=== PATIENT | male | born 1935 | race Caucasian/White ===

== ENCOUNTER 2016-09-06 08:21 | Inpatient (IN) | payer OTHER ==
[~2016-09-06] VITALS: Ht 180.3 cm; Wt 98.4 kg
[2016-09-06 09:20] LABS: HEMATOCRIT 43.1 % (38.0-50.0); MCH 28.9 PG (29.0-34.0); MCHC 32.3 G/DL (30.0-36.0); MCV 89.6 FL (86-99); MEAN PLAT.VOLUME 10.5 uM^3 (9.0-12.4); PLATELET COUNT 175 K/uL (156-360); RBC DIS.WIDTH-CV 13.2 % (11.8-14.6); RBC DIS.WIDTH-SD 43.3 % (39-53); RED BLOOD COUNT 4.81 M/uL (4.00-5.50); WHITE BLOOD COUNT 8.9 K/uL (4.1-10.2)
[2016-09-06 09:30] LABS: CHLORIDE 107 mEq/L (99-109); SODIUM 139 mEq/L (136-147)
[2016-09-06 09:32] LABS: GLUCOSE 105 mg/dL (70-99)
[2016-09-06 09:33] LABS: ANION GAP 10 MEQ/L (2-14)
[2016-09-06 09:36] LABS: GFR ESTIMATE (CALCULATED) 44 mL/min/
[2016-09-06 09:37] LABS: UREA NITROGEN (BUN) 34 mg/dL (9-23)
[2016-09-06 09:40] LABS: TROP-I INTERPRETATION NEGATIVE; TROPONIN-I < 0.01 ng/mL (0.0-0.30)
[2016-09-06 10:06] LABS: ADD MIUA? NO; BILIRUBIN NEGATIVE; BLOOD NEGATIVE; COLOR YELLOW ((YELLOW)); GLUCOSE (STRIP) NEGATIVE; KETONES NEGATIVE; LEUKOCYTES NEGATIVE; NITRITE NEGATIVE; PROTEIN (STRIP) 30; SPECIFIC GRAVITY 1.017 (1.000-1.030); UROBILINOGEN 0.2 MG/DL (0.2-1.0)
[2016-09-06] MEDS ORDERED: VERAPAMIL HCL360 MG PO (10:38)
[2016-09-06] MEDS ORDERED: LISINOPRIL-HCT1 EAC3 PO (10:39)
[2016-09-06] MEDS ORDERED: FINASTERIDE5 MG PO (10:39)
[2016-09-06] MEDS ORDERED: ESOMEPRAZOLE MA40 MG PO (10:40)
[2016-09-06] MEDS ORDERED: FENOFIBRIC ACI135 MG PO (10:40)
[2016-09-06] MEDS ORDERED: NADOLOL40 MG PO (10:40)
[2016-09-06] MEDS ORDERED: PENTASA250 MG PO (10:41)
[2016-09-06] MEDS ORDERED: ZENPEP DR 20,01 EACH PO (10:41)
[2016-09-06] MEDS ORDERED: NASONEX17 GM BOTH NARES (10:42)
[2016-09-06] MEDS ORDERED: IPRATROPIUM BRO30 ML BOTH NARES (10:42)
[2016-09-06 21:01] VITALS: BP 140/97
[2016-09-06 23:07] VITALS: BP 137/90
[2016-09-07 04:02] VITALS: BP 141/72
[2016-09-07 06:53] LABS: HEMATOCRIT 42.4 % (38.0-50.0); MCH 28.7 PG (29.0-34.0); MCHC 31.8 G/DL (30.0-36.0); MEAN PLAT.VOLUME 11.2 uM^3 (9.0-12.4); PLATELET COUNT 173 K/uL (156-360); RBC DIS.WIDTH-CV 13.2 % (11.8-14.6); RBC DIS.WIDTH-SD 43.8 % (39-53); RED BLOOD COUNT 4.71 M/uL (4.00-5.50); WHITE BLOOD COUNT 8.3 K/uL (4.1-10.2)
[2016-09-07 07:19] LABS: ANION GAP 10 MEQ/L (2-14); CHLORIDE 105 MEQ/L (99-109); GFR ESTIMATE (CALCULATED) 52 mL/min/; GLUCOSE 97 mg/dL (70-99); POTASSIUM 3.6 MEQ/L (3.7-5.4); SAMPLE HEMOLYSIS CHECK 0; SAMPLE ICTERIC CHECK 0; SAMPLE LIPEMIA CHECK 0; SODIUM 139 MEQ/L (136-147); UREA NITROGEN (BUN) 28 mg/dL (9-23)
[2016-09-07 07:23] VITALS: BP 176/80
[2016-09-07 07:36] LABS: CREATINE KINASE 122 IU/L (1-294)
[2016-09-07 11:07] VITALS: BP 175/79
[2016-09-07 15:12] VITALS: BP 168/74
[2016-09-07 19:36] VITALS: BP 179/82
[2016-09-07 23:26] VITALS: BP 169/77
[2016-09-08 03:23] VITALS: BP 156/68
[2016-09-08 06:55] VITALS: BP 160/74
[2016-09-08 11:32] VITALS: BP 154/71
[2016-09-08 16:53] VITALS: BP 176/84
[2016-09-08 19:10] VITALS: BP 172/81
[2016-09-08 22:49] VITALS: BP 186/80
[2016-09-09 02:25] VITALS: BP 131/62
[2016-09-09 07:15] VITALS: BP 149/68
[2016-09-09 10:50] VITALS: BP 182/74
[2016-09-09 19:07] VITALS: BP 175/82
[2016-09-09 23:36] VITALS: BP 142/48
[2016-09-10 03:21] VITALS: BP 140/68
[2016-09-10 07:13] VITALS: BP 158/72
[2016-09-10 15:00] VITALS: BP 162/70
[2016-09-10 19:25] VITALS: BP 140/81
[2016-09-10 23:16] VITALS: BP 160/78
[2016-09-11 02:40] VITALS: BP 148/66
[2016-09-11 07:39] VITALS: BP 181/74
[2016-09-11] MEDS ORDERED: CLONIDINE HCL0.1 MG PO (08:16)
[2016-09-11] MEDS ORDERED: PREDNISONE20 MG PO (08:17)
[2016-09-11 11:49] VITALS: BP 148/66
== END 2016-09-11 13:36 | DRG 552 ==
LOC: EME 08:21 → 5EAST 15:56 → EDOF 15:56 → 5EAST 20:40
PROVIDERS: Internal Medicine; Nurse Practitioner Family
DX: M48.06 Spinal stenosis, lumbar region (principal); M43.16 Spondylolisthesis, lumbar region; I12.9 Hypertensive chronic kidney disease with stage 1 through stage 4 chronic kidney disease, or unspecified chronic kidney disease; N18.9 Chronic kidney disease, unspecified; R00.1 Bradycardia, unspecified; E78.5 Hyperlipidemia, unspecified; K21.9 Gastro-esophageal reflux disease without esophagitis; N40.0 Benign prostatic hyperplasia without lower urinary tract symptoms
CPT/HCPCS: 70450; 71020; 72100; 72120; 72148; 80048; 81003; 82550; 84484; 85027; 93005; 97530 GO; 97530 GP; 99281; 99285; G8978 GP CJ; G8979 GP CH; G8987 GO CI; G8988 GO CH; J1650; J2920; J7030; J7512

== ENCOUNTER 2016-09-11 08:58 | Inpatient (IN) | payer OTHER ==
[~2016-09-11] VITALS: Ht 180.3 cm; Wt 93.4 kg
[~2016-09-11 08:58] MED LIST: CLONIDINE HCL0.1 MG PO; ESOMEPRAZOLE MA40 MG PO; FENOFIBRIC ACI135 MG PO; FINASTERIDE5 MG PO; IPRATROPIUM BRO30 ML BOTH NARES; LISINOPRIL-HCT1 EAC3 PO; NADOLOL40 MG PO; NASONEX17 GM BOTH NARES; PENTASA250 MG PO; PREDNISONE20 MG PO; VERAPAMIL HCL360 MG PO; ZENPEP DR 20,01 EACH PO
[2016-09-11 14:04] VITALS: BP 148/68
[2016-09-11 15:27] VITALS: BP 150/70
[2016-09-11 23:57] VITALS: BP 120/59
[2016-09-12 05:28] LABS: HEMATOCRIT 42.6 % (38.0-50.0); MCH 29.3 PG (29.0-34.0); MCHC 32.6 G/DL (30.0-36.0); MCV 89.7 FL (86-99); MEAN PLAT.VOLUME 10.9 uM^3 (9.0-12.4); PLATELET COUNT 192 K/uL (156-360); RBC DIS.WIDTH-CV 13.4 % (11.8-14.6); RED BLOOD COUNT 4.75 M/uL (4.00-5.50)
[2016-09-12 05:53] LABS: ALKALINE PHOSPHATASE 24 IU/L (3-129); ANION GAP 10 MEQ/L (2-14); CHLORIDE 103 MEQ/L (99-109); GFR ESTIMATE (CALCULATED) 36 mL/min/; GLUCOSE 86 mg/dL (70-99); SAMPLE HEMOLYSIS CHECK 0; SAMPLE ICTERIC CHECK 0; SAMPLE LIPEMIA CHECK 0; SODIUM 137 MEQ/L (136-147); TOTAL BILIRUBIN 0.7 MG/DL (0.0-1.0)
[2016-09-12 05:54] LABS: UREA NITROGEN (BUN) 69 mg/dL (9-23)
[2016-09-12 06:03] VITALS: BP 143/68
[2016-09-12 15:02] VITALS: BP 122/59
[2016-09-13 06:09] VITALS: BP 128/60
[2016-09-13 08:20] VITALS: BP 119/59
[2016-09-13 15:23] VITALS: BP 125/63
[2016-09-13 17:13] LABS: ADD MIUA? NO; BILIRUBIN NEGATIVE; BLOOD NEGATIVE; COLOR YELLOW ((YELLOW)); GLUCOSE (STRIP) NEGATIVE; KETONES NEGATIVE; LEUKOCYTES NEGATIVE; NITRITE NEGATIVE; PROTEIN (STRIP) NEGATIVE; SPECIFIC GRAVITY 1.019 (1.000-1.030); UROBILINOGEN 0.2 MG/DL (0.2-1.0)
[2016-09-13 17:48] LABS: UR CREATININE CONCENTRATION 114.8 MG/DL
[2016-09-14 05:24] VITALS: BP 124/61
[2016-09-14 06:19] LABS: EOSINOPHIL (%) 0.6 % (0-5); EOSINOPHIL COUNT 0.1 K/uL (0-0.3); HEMATOCRIT 42.9 % (38.0-50.0); IMMATURE GRANULOCYTE (%) 4.1 % (0.0-0.7); IMMATURE GRANULOCYTE COUNT 0.6 K/uL; INSTRUMENT ABS NEUTROPHIL CT 10.2 K/uL; LYMPHOCYTE COUNT 2.4 K/uL (1.0-2.8); MCH 29.5 PG (29.0-34.0); MCHC 32.6 G/DL (30.0-36.0); MCV 90.3 FL (86-99); MEAN PLAT.VOLUME 10.3 uM^3 (9.0-12.4); MONOCYTE (%) 6.3 % (3-12); MONOCYTE COUNT 0.9 K/uL (0-0.8); NEUTROPHIL COUNT 10.2 K/uL (1.8-6.4); PLATELET COUNT 204 K/uL (156-360); RBC DIS.WIDTH-CV 13.4 % (11.8-14.6); RBC DIS.WIDTH-SD 44.9 % (39-53); RED BLOOD COUNT 4.75 M/uL (4.00-5.50); WHITE BLOOD COUNT 14.2 K/uL (4.1-10.2)
[2016-09-14 06:42] LABS: ANION GAP 10 MEQ/L (2-14); CHLORIDE 104 MEQ/L (99-109); GFR ESTIMATE (CALCULATED) 31 mL/min/; GLUCOSE 93 mg/dL (70-99); MAGNESIUM 2.4 mg/dl (1.3-2.7); POTASSIUM 4.1 MEQ/L (3.7-5.4); SAMPLE HEMOLYSIS CHECK 0; SAMPLE ICTERIC CHECK 0; SAMPLE LIPEMIA CHECK 0; SODIUM 137 MEQ/L (136-147); UREA NITROGEN (BUN) 78 mg/dL (9-23)
[2016-09-14 18:17] LABS: ADD MIUA? NO; BILIRUBIN NEGATIVE; BLOOD NEGATIVE; COLOR YELLOW ((YELLOW)); GLUCOSE (STRIP) NEGATIVE; KETONES NEGATIVE; LEUKOCYTES NEGATIVE; NITRITE NEGATIVE; PROTEIN (STRIP) NEGATIVE; SPECIFIC GRAVITY 1.017 (1.000-1.030); UROBILINOGEN 0.2 MG/DL (0.2-1.0)
[2016-09-15 05:29] VITALS: BP 140/65
[2016-09-15 05:34] LABS: EOSINOPHIL (%) 0.3 % (0-5); HEMATOCRIT 42.9 % (38.0-50.0); IMMATURE GRANULOCYTE (%) 2.4 % (0.0-0.7); IMMATURE GRANULOCYTE COUNT 0.4 K/uL; LYMPHOCYTE COUNT 2.4 K/uL (1.0-2.8); MCH 29.8 PG (29.0-34.0); MCHC 33.1 G/DL (30.0-36.0); MCV 90.1 FL (86-99); MEAN PLAT.VOLUME 10.4 uM^3 (9.0-12.4); MONOCYTE (%) 6.1 % (3-12); MONOCYTE COUNT 0.9 K/uL (0-0.8); NEUTROPHIL (%) 74.7 % (45-76); PLATELET COUNT 236 K/uL (156-360); RBC DIS.WIDTH-CV 13.5 % (11.8-14.6); RBC DIS.WIDTH-SD 44.7 % (39-53); RED BLOOD COUNT 4.76 M/uL (4.00-5.50); WHITE BLOOD COUNT 14.7 K/uL (4.1-10.2)
[2016-09-15 05:58] LABS: ANION GAP 10 MEQ/L (2-14); CHLORIDE 106 MEQ/L (99-109); GFR ESTIMATE (CALCULATED) 41 mL/min/; GLUCOSE 87 mg/dL (70-99); POTASSIUM 4.4 MEQ/L (3.7-5.4); SAMPLE HEMOLYSIS CHECK 0; SAMPLE ICTERIC CHECK 0; SAMPLE LIPEMIA CHECK 0; SODIUM 138 MEQ/L (136-147); UREA NITROGEN (BUN) 68 mg/dL (9-23)
[2016-09-15 15:19] VITALS: BP 101/55
[2016-09-16 06:43] VITALS: BP 137/62
[2016-09-16 12:18] LABS: ADD MIUA? NO; BILIRUBIN NEGATIVE; BLOOD NEGATIVE; COLOR YELLOW ((YELLOW)); GLUCOSE (STRIP) NEGATIVE; KETONES NEGATIVE; LEUKOCYTES NEGATIVE; NITRITE NEGATIVE; PROTEIN (STRIP) NEGATIVE; UROBILINOGEN 0.2 MG/DL (0.2-1.0)
[2016-09-16 15:47] VITALS: BP 112/66
[2016-09-17 05:19] VITALS: BP 129/66
[2016-09-17 08:49] LABS: ANION GAP 12 MEQ/L (2-14); CHLORIDE 105 MEQ/L (99-109); GFR ESTIMATE (CALCULATED) 39 mL/min/; GLUCOSE 84 mg/dL (70-99); POTASSIUM 4.7 MEQ/L (3.7-5.4); SAMPLE HEMOLYSIS CHECK 0; SAMPLE ICTERIC CHECK 0; SAMPLE LIPEMIA CHECK 0; SODIUM 140 MEQ/L (136-147); UREA NITROGEN (BUN) 55 mg/dL (9-23)
[2016-09-17 15:00] VITALS: BP 113/66
[2016-09-18 05:22] VITALS: BP 125/68
[2016-09-18 06:44] LABS: ANION GAP 9 MEQ/L (2-14); CHLORIDE 106 MEQ/L (99-109); GFR ESTIMATE (CALCULATED) 39 mL/min/; GLUCOSE 82 mg/dL (70-99); POTASSIUM 4.1 MEQ/L (3.7-5.4); SAMPLE HEMOLYSIS CHECK 0; SAMPLE ICTERIC CHECK 0; SAMPLE LIPEMIA CHECK 0; SODIUM 139 MEQ/L (136-147); UREA NITROGEN (BUN) 57 mg/dL (9-23)
[2016-09-18 15:33] VITALS: BP 130/67
[2016-09-19 05:18] VITALS: BP 118/62
[2016-09-19 06:46] LABS: ANION GAP 9 MEQ/L (2-14); CHLORIDE 105 MEQ/L (99-109); GFR ESTIMATE (CALCULATED) 52 mL/min/; GLUCOSE 88 mg/dL (70-99); POTASSIUM 4.3 MEQ/L (3.7-5.4); SAMPLE HEMOLYSIS CHECK 0; SAMPLE ICTERIC CHECK 0; SAMPLE LIPEMIA CHECK 0; SODIUM 136 MEQ/L (136-147); UREA NITROGEN (BUN) 48 mg/dL (9-23)
[2016-09-19 15:01] VITALS: BP 112/60
[2016-09-20 06:06] VITALS: BP 138/70
[2016-09-20 15:41] VITALS: BP 117/56
[2016-09-21 05:14] VITALS: BP 124/67
[2016-09-21 15:32] VITALS: BP 140/80
[2016-09-22 05:50] VITALS: BP 148/65
[2016-09-22 15:37] VITALS: BP 118/60
[2016-09-23 05:12] VITALS: BP 132/87
[2016-09-23 05:53] LABS: EOSINOPHIL (%) 0.1 % (0-5); IMMATURE GRANULOCYTE (%) 1.7 % (0.0-0.7); IMMATURE GRANULOCYTE COUNT 0.3 K/uL; INSTRUMENT ABS NEUTROPHIL CT 12.9 K/uL; LYMPHOCYTE COUNT 2.4 K/uL (1.0-2.8); MCH 29.5 PG (29.0-34.0); MCHC 32.6 G/DL (30.0-36.0); MCV 90.3 FL (86-99); MONOCYTE (%) 5.5 % (3-12); MONOCYTE COUNT 0.9 K/uL (0-0.8); NEUTROPHIL (%) 78.4 % (45-76); NEUTROPHIL COUNT 12.9 K/uL (1.8-6.4); PLATELET COUNT 253 K/uL (156-360); RBC DIS.WIDTH-CV 13.6 % (11.8-14.6); RBC DIS.WIDTH-SD 44.9 % (39-53); RED BLOOD COUNT 4.65 M/uL (4.00-5.50); WHITE BLOOD COUNT 16.5 K/uL (4.1-10.2)
[2016-09-23 06:22] LABS: ALKALINE PHOSPHATASE 29 IU/L (3-129); ANION GAP 8 MEQ/L (2-14); CHLORIDE 103 MEQ/L (99-109); GFR ESTIMATE (CALCULATED) 44 mL/min/; GLUCOSE 85 mg/dL (70-99); POTASSIUM 4.6 MEQ/L (3.7-5.4); SAMPLE HEMOLYSIS CHECK 0; SAMPLE ICTERIC CHECK 0; SAMPLE LIPEMIA CHECK 0; SODIUM 135 MEQ/L (136-147); TOTAL BILIRUBIN 0.6 MG/DL (0.0-1.0); UREA NITROGEN (BUN) 47 mg/dL (9-23)
[2016-09-23 15:14] VITALS: BP 126/74
[2016-09-23 16:21] LABS: POINT-OF-CARE METER ID UU14174215
[2016-09-24 05:58] VITALS: BP 109/65
[2016-09-24 15:15] VITALS: BP 155/83
[2016-09-25 05:04] VITALS: BP 116/59
[2016-09-25 15:58] VITALS: BP 103/70
[2016-09-26 04:54] VITALS: BP 129/75
[2016-09-26 15:44] VITALS: BP 133/77
[2016-09-27 06:07] VITALS: BP 117/87
[2016-09-27 09:26] LABS: LYME DISEASE SEROLOGY SCREEN NEGATIVE (NEGATIVE)
[2016-09-27 15:46] VITALS: BP 113/65
[2016-09-28 05:28] VITALS: BP 111/58
[2016-09-28 15:26] VITALS: BP 126/70
[2016-09-29 05:42] VITALS: BP 112/64
[2016-09-29 15:40] VITALS: BP 127/65
[2016-09-30 06:23] VITALS: BP 113/61
[2016-09-30 15:08] VITALS: BP 139/86
[2016-10-01 05:55] VITALS: BP 123/68
[2016-10-01 15:39] VITALS: BP 149/73
[2016-10-02 05:36] VITALS: BP 116/67
[2016-10-02 15:01] VITALS: BP 105/57
[2016-10-03 04:46] VITALS: BP 120/65
[2016-10-03 16:11] VITALS: BP 131/76
[2016-10-04 04:22] VITALS: BP 118/61
[2016-10-04 06:14] LABS: HEMATOCRIT 43.8 % (38.0-50.0); MCH 29.3 PG (29.0-34.0); MCV 91.6 FL (86-99); MEAN PLAT.VOLUME 9.1 uM^3 (9.0-12.4); PLATELET COUNT 202 K/uL (156-360); RBC DIS.WIDTH-CV 14.1 % (11.8-14.6); RBC DIS.WIDTH-SD 47.8 % (39-53); RED BLOOD COUNT 4.78 M/uL (4.00-5.50)
[2016-10-04 06:17] LABS: WHITE BLOOD COUNT 11.4 K/uL (4.1-10.2)
[2016-10-04 06:48] LABS: ALKALINE PHOSPHATASE 35 IU/L (3-129); ANION GAP 9 MEQ/L (2-14); CHLORIDE 107 MEQ/L (99-109); GFR ESTIMATE (CALCULATED) 48 mL/min/; GLUCOSE 79 mg/dL (70-99); POTASSIUM 4.2 MEQ/L (3.7-5.4); SAMPLE HEMOLYSIS CHECK 0; SAMPLE ICTERIC CHECK 0; SAMPLE LIPEMIA CHECK 0; SODIUM 138 MEQ/L (136-147); TOTAL BILIRUBIN 1.2 MG/DL (0.0-1.0); UREA NITROGEN (BUN) 41 mg/dL (9-23)
[2016-10-04 15:35] VITALS: BP 149/72
[2016-10-05 04:28] VITALS: BP 112/59
[2016-10-05] MEDS ORDERED: NADOLOL40 MG PO (11:21)
[2016-10-05] MEDS ORDERED: SENNA PLUS TAB1 EACH PO (11:21)
[2016-10-05] MEDS ORDERED: VERAPAMIL HCL360 MG PO (11:21)
[2016-10-05] MEDS ORDERED: FINASTERIDE5 MG PO (11:21)
[2016-10-05] MEDS ORDERED: VITAMIN D-32000 UNI2 PO (11:21)
[2016-10-05] MEDS ORDERED: PREDNISONE5 MG PO (11:21)
== END 2016-10-05 14:15 | disposition home health service (06) | DRG 945 ==
LOC: 3WEST 08:58
PROVIDERS: Internal Medicine Nephrology; Nurse Practitioner Adult Health; Physical Medicine & Rehabilitation Pain Medicine; Psychiatry & Neurology Neurology
PROC: F07M0ZZ Range of Motion and Joint Mobility Treatment of Musculoskeletal System - Whole Body (ICD-10-PCS; principal; 2016-09-11)
DX: R53.1 Weakness (principal); R26.2 Difficulty in walking, not elsewhere classified; Z74.09 Other reduced mobility; M48.06 Spinal stenosis, lumbar region; N17.9 Acute kidney failure, unspecified; I12.9 Hypertensive chronic kidney disease with stage 1 through stage 4 chronic kidney disease, or unspecified chronic kidney disease; N40.1 Benign prostatic hyperplasia with lower urinary tract symptoms; E78.5 Hyperlipidemia, unspecified; K21.9 Gastro-esophageal reflux disease without esophagitis; R35.0 Frequency of micturition; M21.379 Foot drop, unspecified foot; N18.3 Chronic kidney disease, stage 3 (moderate); K51.90 Ulcerative colitis, unspecified, without complications; Z60.2 Problems related to living alone; N39.41 Urge incontinence; M47.816 Spondylosis without myelopathy or radiculopathy, lumbar region; M51.36 Other intervertebral disc degeneration, lumbar region; E87.6 Hypokalemia; M51.26 Other intervertebral disc displacement, lumbar region; Z91.81 History of falling; Z87.891 Personal history of nicotine dependence; Z82.49 Family history of ischemic heart disease and other diseases of the circulatory system; Z83.3 Family history of diabetes mellitus
CPT/HCPCS: 76770; 80048; 80053; 81003; 82306; 82570; 82607; 82746; 82948; 83735; 84100; 84156; 84443; 84550; 85025; 85027; 86618; 87086; 92523 GN; 97110 GO; 97112 GO; 97530 GP; 97532 GN; J1650; J7030; J7512

== ENCOUNTER 2016-12-03 14:34 | Inpatient (IN) | payer OTHER ==
[~2016-12-03] VITALS: Ht 177.8 cm; Wt 97.7 kg
[~2016-12-03 14:34] MED LIST changes: +PREDNISONE5 MG PO; +SENNA PLUS TAB1 EACH PO; +VITAMIN D-32000 UNI2 PO
[2016-12-03 14:59] LABS: BASOPHIL COUNT 0.1 K/uL (0-0.1); EOSINOPHIL (%) 1.4 % (0-5); EOSINOPHIL COUNT 0.1 K/uL (0-0.3); HEMATOCRIT 45.8 % (38.0-50.0); IMMATURE GRANULOCYTE (%) 0.9 % (0.0-0.7); IMMATURE GRANULOCYTE COUNT 0.1 K/uL; LYMPHOCYTE COUNT 1.3 K/uL (1.0-2.8); MCH 28.5 PG (29.0-34.0); MCHC 31.4 G/DL (30.0-36.0); MCV 90.5 FL (86-99); MEAN PLAT.VOLUME 9.9 uM^3 (9.0-12.4); MONOCYTE (%) 5.1 % (3-12); MONOCYTE COUNT 0.5 K/uL (0-0.8); PLATELET COUNT 275 K/uL (156-360); RBC DIS.WIDTH-CV 13.7 % (11.8-14.6); RBC DIS.WIDTH-SD 45.6 % (39-53); RED BLOOD COUNT 5.06 M/uL (4.00-5.50); WHITE BLOOD COUNT 10.1 K/uL (4.1-10.2)
[2016-12-03 15:07] LABS: AMYLASE 68 IU/L (1-118); CHLORIDE 106 mEq/L (99-109); INTER. NORMALIZED RATIO 1.2; SODIUM 137 mEq/L (136-147)
[2016-12-03 15:09] LABS: GLUCOSE 98 mg/dL (70-99)
[2016-12-03 15:10] LABS: ANION GAP 9 MEQ/L (2-14)
[2016-12-03 15:12] LABS: SERUM ETHYL ALCOHOL < 10 mg/dL
[2016-12-03 15:13] LABS: GFR ESTIMATE (CALCULATED) 44 mL/min/
[2016-12-03 15:14] LABS: UREA NITROGEN (BUN) 27 mg/dL (9-23)
[2016-12-03 15:16] LABS: LIPASE 44 U/L (1.0-51.0)
[2016-12-03 15:19] LABS: TROP-I INTERPRETATION NEGATIVE; TROPONIN-I < 0.01 ng/mL (0.0-0.30)
[2016-12-03 15:24] LABS: ADD MIUA? NO; BILIRUBIN NEGATIVE; BLOOD NEGATIVE; COLOR YELLOW ((YELLOW)); GLUCOSE (STRIP) NEGATIVE; KETONES NEGATIVE; LEUKOCYTES NEGATIVE; NITRITE NEGATIVE; PROTEIN (STRIP) NEGATIVE; SPECIFIC GRAVITY 1.016 (1.000-1.030); UCUL ADDED? NO; UROBILINOGEN 0.2 MG/DL (0.2-1.0)
[2016-12-03 15:37] LABS: AMPHETAMINE NEGATIVE (500 ng/mL); BARBITURATES NEGATIVE (200 ng/mL); BENZODIAZEPINES NEGATIVE (150 ng/mL); COCAINE NEGATIVE (150 ng/mL); INTERNAL CONTROLS VALID? YES; METHADONE NEGATIVE (200 ng/mL); METHAMPHETAMINE NEGATIVE (500 ng/mL); OPIATES (MORPHINE) NEGATIVE (100 ng/mL); OXYCODONE NEGATIVE (100 ng/mL); PHENCYCLIDINE NEGATIVE (25 ng/mL); PROPOXYPHENE NEGATIVE (300 ng/mL); THC CANNABINOIDS NEGATIVE (50 ng/mL); TRICYCLIC ANTIDEPRESSANTS NEGATIVE (300 ng/mL)
[2016-12-03 19:01] VITALS: BP 161/83
[2016-12-03 23:47] VITALS: BP 157/73
[2016-12-04 03:34] VITALS: BP 152/72
[2016-12-04 05:48] LABS: EOSINOPHIL (%) 0.6 % (0-5); EOSINOPHIL COUNT 0.1 K/uL (0-0.3); HEMATOCRIT 43.1 % (38.0-50.0); IMMATURE GRANULOCYTE (%) 0.4 % (0.0-0.7); INSTRUMENT ABS NEUTROPHIL CT 7.4 K/uL; LYMPHOCYTE COUNT 1.6 K/uL (1.0-2.8); MCH 29.9 PG (29.0-34.0); MCHC 33.2 G/DL (30.0-36.0); MCV 90.2 FL (86-99); MEAN PLAT.VOLUME 10.3 uM^3 (9.0-12.4); MONOCYTE (%) 4.7 % (3-12); MONOCYTE COUNT 0.5 K/uL (0-0.8); NEUTROPHIL (%) 77.6 % (45-76); NEUTROPHIL COUNT 7.4 K/uL (1.8-6.4); PLATELET COUNT 259 K/uL (156-360); RBC DIS.WIDTH-CV 13.6 % (11.8-14.6); RBC DIS.WIDTH-SD 45.1 % (39-53); RED BLOOD COUNT 4.78 M/uL (4.00-5.50); WHITE BLOOD COUNT 9.5 K/uL (4.1-10.2)
[2016-12-04 06:38] LABS: INTER. NORMALIZED RATIO 1.2; PROTHROMBIN TIME 13.2 SEC (10.2-12.9)
[2016-12-04 06:58] LABS: ALKALINE PHOSPHATASE 29 IU/L (3-129); ANION GAP 11 MEQ/L (2-14); CHLORIDE 103 MEQ/L (99-109); DIRECT BILIRUBIN 0.3 mg/dL (0.0-0.3); GFR ESTIMATE (CALCULATED) 56 mL/min/; GLUCOSE 88 mg/dL (70-99); HDL CHOLESTEROL 31 MG/DL (Desirable>=40); LDL CHOLESTEROL 84 mg/dL (Desirable<100); NON-HDL CHOLESTEROL 117 mg/dL (Desirable<160); POTASSIUM 3.8 MEQ/L (3.7-5.4); SAMPLE HEMOLYSIS CHECK 0; SAMPLE ICTERIC CHECK 0; SAMPLE LIPEMIA CHECK 0; SODIUM 139 MEQ/L (136-147); TOTAL BILIRUBIN 1.2 MG/DL (0.0-1.0); TOTAL CHOLESTEROL 148 mg/dL (Desirable<200); TRIGLYCERIDES 166 MG/DL (Normal: <150); UREA NITROGEN (BUN) 23 mg/dL (9-23)
[2016-12-04 07:15] VITALS: BP 156/90
[2016-12-04 08:05] LABS: Estimated Average Glucose 103 mg/dL (70-123); HEMOGLOBIN A1c (GLYCOHEMOGLOB) 5.2 % HGB (Below 5.7)
[2016-12-04] MEDS ORDERED: NADOLOL40 MG PO (09:05)
[2016-12-04] MEDS ORDERED: HYDROCHLOROTH12.5 M3 PO (09:05)
[2016-12-04] MEDS ORDERED: FINASTERIDE5 MG PO (09:05)
[2016-12-04] MEDS ORDERED: FENOFIBRIC ACI135 MG PO (09:06)
[2016-12-04] MEDS ORDERED: VERAPAMIL HCL360 MG PO (09:06)
[2016-12-04] MEDS ORDERED: ZENPEP DR 20,01 EACH PO (09:07)
[2016-12-04] MEDS ORDERED: NEXIUM40 MG PO (09:07)
[2016-12-04] MEDS ORDERED: PENTASA250 MG PO (09:07)
[2016-12-04 11:40] VITALS: BP 165/88
[2016-12-04 15:17] VITALS: BP 155/97
[2016-12-04 20:10] VITALS: BP 145/81
[2016-12-05 00:26] VITALS: BP 145/71
[2016-12-05 04:14] VITALS: BP 143/82
[2016-12-05 08:03] VITALS: BP 143/92
[2016-12-05] MEDS ORDERED: ATORVASTATIN CA40 MG PO (10:31)
[2016-12-05] MEDS ORDERED: CLOPIDOGREL75 MG PO (10:31)
[2016-12-05] MEDS ORDERED: ASPIR-LOW81 MG PO (10:32)
[2016-12-05 12:04] VITALS: BP 152/75
[2016-12-05 15:10] LABS: POINT-OF-CARE METER ID UU14188625
[2016-12-05 16:51] LABS: INTER. NORMALIZED RATIO 1.3; PROTHROMBIN TIME 13.9 SEC (10.2-12.9)
[2016-12-05 19:30] VITALS: BP 160/80
[2016-12-06 00:05] VITALS: BP 158/72
[2016-12-06 04:45] VITALS: BP 152/71
[2016-12-06 07:36] LABS: HEMATOCRIT 41.9 % (38.0-50.0); MCH 29.5 PG (29.0-34.0); MCHC 32.7 G/DL (30.0-36.0); MCV 90.1 FL (86-99); MEAN PLAT.VOLUME 10.3 uM^3 (9.0-12.4); PLATELET COUNT 206 K/uL (156-360); RBC DIS.WIDTH-CV 13.3 % (11.8-14.6); RBC DIS.WIDTH-SD 44.1 % (39-53); RED BLOOD COUNT 4.65 M/uL (4.00-5.50); WHITE BLOOD COUNT 7.7 K/uL (4.1-10.2)
[2016-12-06 08:07] LABS: ALKALINE PHOSPHATASE 29 IU/L (3-129); ANION GAP 9 MEQ/L (2-14); CHLORIDE 105 MEQ/L (99-109); GFR ESTIMATE (CALCULATED) > 59 mL/min/; GLUCOSE 89 mg/dL (70-99); POTASSIUM 3.5 MEQ/L (3.7-5.4); SAMPLE HEMOLYSIS CHECK 0; SAMPLE ICTERIC CHECK 0; SAMPLE LIPEMIA CHECK 0; SODIUM 138 MEQ/L (136-147); UREA NITROGEN (BUN) 15 mg/dL (9-23)
[2016-12-06 08:13] VITALS: BP 120/67
[2016-12-06 12:06] VITALS: BP 132/76
[2016-12-06] MEDS ORDERED: CARDIZEM CD,CA120 MG PO (17:01)
[2016-12-06] MEDS ORDERED: ELIQUIS5 MG PO (17:02)
== END 2016-12-06 15:04 | DRG 65 ==
LOC: EME 14:34 → 5SOUTH 16:04 → EDOF 16:04 → ENRESERV 16:05 → 5SOUTH 18:49
PROVIDERS: Emergency Medicine; Hospitalist; Internal Medicine
DX: I63.9 Cerebral infarction, unspecified (principal); R47.01 Aphasia; R29.810 Facial weakness; R29.703 NIHSS score 3; I48.91 Unspecified atrial fibrillation; N17.9 Acute kidney failure, unspecified; I12.9 Hypertensive chronic kidney disease with stage 1 through stage 4 chronic kidney disease, or unspecified chronic kidney disease; N18.3 Chronic kidney disease, stage 3 (moderate); N40.0 Benign prostatic hyperplasia without lower urinary tract symptoms; K50.90 Crohn's disease, unspecified, without complications; E78.5 Hyperlipidemia, unspecified; Z60.2 Problems related to living alone; M48.06 Spinal stenosis, lumbar region; I73.9 Peripheral vascular disease, unspecified; K21.9 Gastro-esophageal reflux disease without esophagitis; J30.2 Other seasonal allergic rhinitis; Z91.81 History of falling; Z87.891 Personal history of nicotine dependence; Z82.49 Family history of ischemic heart disease and other diseases of the circulatory system; Z83.3 Family history of diabetes mellitus; Z90.49 Acquired absence of other specified parts of digestive tract
CPT/HCPCS: 70450; 70549; 70551; 80048; 80053; 80061; 80076; 81003; 82150; 82948; 83036; 83690; 84484; 85025; 85027; 85610; 85730; 86900; 86901; 93005; 93306; 93880; 97530 GO; 97530 GP; 99281; 99285; G0480; J7030

== ENCOUNTER 2016-12-05 12:39 | Inpatient (IN) | payer OTHER ==
[~2016-12-05] VITALS: Ht 180.3 cm; Wt 90.4 kg
[~2016-12-05 12:39] MED LIST changes: +ASPIR-LOW81 MG PO; +ATORVASTATIN CA40 MG PO; +CLOPIDOGREL75 MG PO; +HYDROCHLOROTH12.5 M3 PO; +NEXIUM40 MG PO
[2016-12-06 15:25] VITALS: BP 141/75
[2016-12-06] MEDS ORDERED: CARDIZEM CD,CA120 MG PO (17:01)
[2016-12-06] MEDS ORDERED: ELIQUIS5 MG PO (17:02)
[2016-12-06 23:24] VITALS: BP 147/79
[2016-12-07 04:54] LABS: HEMATOCRIT 40.3 % (38.0-50.0); MCH 28.6 PG (29.0-34.0); MCHC 32.3 G/DL (30.0-36.0); MCV 88.6 FL (86-99); MEAN PLAT.VOLUME 10.1 uM^3 (9.0-12.4); PLATELET COUNT 211 K/uL (156-360); RBC DIS.WIDTH-CV 13.2 % (11.8-14.6); RBC DIS.WIDTH-SD 43.5 % (39-53); RED BLOOD COUNT 4.55 M/uL (4.00-5.50); WHITE BLOOD COUNT 9.6 K/uL (4.1-10.2)
[2016-12-07 05:11] LABS: CHLORIDE 104 mEq/L (99-109); POTASSIUM 3.5 mEq/L (3.7-5.4); SODIUM 136 mEq/L (136-147)
[2016-12-07 05:13] LABS: GLUCOSE 98 mg/dL (70-99)
[2016-12-07 05:14] LABS: ANION GAP 8 MEQ/L (2-14)
[2016-12-07 05:15] LABS: TOTAL BILIRUBIN 0.7 mg/dL (0.0-1.0)
[2016-12-07 05:16] LABS: ALKALINE PHOSPHATASE 37 IU/L (3-129)
[2016-12-07 05:17] LABS: GFR ESTIMATE (CALCULATED) > 59 mL/min/
[2016-12-07 05:18] LABS: UREA NITROGEN (BUN) 21 mg/dL (9-23)
[2016-12-07 05:24] VITALS: BP 134/69
[2016-12-07 15:25] VITALS: BP 148/87
[2016-12-08 05:03] VITALS: BP 142/76
[2016-12-08 15:33] VITALS: BP 157/75
[2016-12-09 05:12] VITALS: BP 160/84
[2016-12-09 15:32] VITALS: BP 116/59
[2016-12-10 04:34] VITALS: BP 134/66
[2016-12-10 15:00] VITALS: BP 138/81
[2016-12-11 06:23] VITALS: BP 135/63
[2016-12-11 15:50] VITALS: BP 135/77
[2016-12-12 05:47] VITALS: BP 131/68
[2016-12-12 15:56] VITALS: BP 108/75
[2016-12-13 04:00] VITALS: BP 131/72
[2016-12-13 16:19] VITALS: BP 104/60
[2016-12-14 04:42] VITALS: BP 125/71
[2016-12-14 17:24] VITALS: BP 122/68
[2016-12-15 04:48] VITALS: BP 122/59
[2016-12-15 15:54] VITALS: BP 138/79
[2016-12-16 04:23] VITALS: BP 123/71
[2016-12-16 05:33] LABS: BASOPHIL COUNT 0.1 K/uL (0-0.1); EOSINOPHIL (%) 2.1 % (0-5); EOSINOPHIL COUNT 0.2 K/uL (0-0.3); HEMATOCRIT 41.7 % (38.0-50.0); IMMATURE GRANULOCYTE (%) 0.9 % (0.0-0.7); IMMATURE GRANULOCYTE COUNT 0.1 K/uL; INSTRUMENT ABS NEUTROPHIL CT 6.9 K/uL; MCH 28.8 PG (29.0-34.0); MCHC 32.6 G/DL (30.0-36.0); MCV 88.2 FL (86-99); MEAN PLAT.VOLUME 10.1 uM^3 (9.0-12.4); MONOCYTE (%) 9.4 % (3-12); NEUTROPHIL (%) 67.5 % (45-76); NEUTROPHIL COUNT 6.9 K/uL (1.8-6.4); PLATELET COUNT 268 K/uL (156-360); RBC DIS.WIDTH-SD 42.6 % (39-53); RED BLOOD COUNT 4.73 M/uL (4.00-5.50); WHITE BLOOD COUNT 10.3 K/uL (4.1-10.2)
[2016-12-16 06:16] LABS: ALKALINE PHOSPHATASE 55 IU/L (3-129); ANION GAP 11 MEQ/L (2-14); CHLORIDE 106 MEQ/L (99-109); GFR ESTIMATE (CALCULATED) > 59 mL/min/; GLUCOSE 90 mg/dL (70-99); POTASSIUM 3.8 MEQ/L (3.7-5.4); SAMPLE HEMOLYSIS CHECK 0; SAMPLE ICTERIC CHECK 0; SAMPLE LIPEMIA CHECK 0; SODIUM 140 MEQ/L (136-147); TOTAL BILIRUBIN 1.2 MG/DL (0.0-1.0); UREA NITROGEN (BUN) 30 mg/dL (9-23)
[2016-12-16 15:37] VITALS: BP 132/79
[2016-12-17 05:35] VITALS: BP 123/77
[2016-12-17 15:55] VITALS: BP 140/71
[2016-12-18 04:20] VITALS: BP 127/71
[2016-12-18 15:00] VITALS: BP 113/66
[2016-12-19 05:43] VITALS: BP 128/60
[2016-12-19 15:15] VITALS: BP 121/68
[2016-12-20 05:28] VITALS: BP 121/64
[2016-12-20 15:26] VITALS: BP 97/53
[2016-12-21 05:32] VITALS: BP 135/74
[2016-12-21 07:11] LABS: BASOPHIL COUNT 0.1 K/uL (0-0.1); EOSINOPHIL (%) 2.8 % (0-5); EOSINOPHIL COUNT 0.2 K/uL (0-0.3); HEMATOCRIT 41.6 % (38.0-50.0); IMMATURE GRANULOCYTE (%) 0.5 % (0.0-0.7); INSTRUMENT ABS NEUTROPHIL CT 5.8 K/uL; LYMPHOCYTE COUNT 1.5 K/uL (1.0-2.8); MCH 29.2 PG (29.0-34.0); MCHC 32.9 G/DL (30.0-36.0); MCV 88.7 FL (86-99); MEAN PLAT.VOLUME 10.4 uM^3 (9.0-12.4); MONOCYTE (%) 6.8 % (3-12); MONOCYTE COUNT 0.6 K/uL (0-0.8); NEUTROPHIL (%) 70.6 % (45-76); NEUTROPHIL COUNT 5.8 K/uL (1.8-6.4); PLATELET COUNT 272 K/uL (156-360); RBC DIS.WIDTH-CV 13.2 % (11.8-14.6); RBC DIS.WIDTH-SD 42.9 % (39-53); RED BLOOD COUNT 4.69 M/uL (4.00-5.50); WHITE BLOOD COUNT 8.2 K/uL (4.1-10.2)
[2016-12-21] MEDS ORDERED: DILTIAZEM 24HR180 MG PO (12:00)
[2016-12-21] MEDS ORDERED: TYLENOL REGULA325 MG PO (12:00)
[2016-12-21] MEDS ORDERED: ZOLPIDEM TARTRAT5 MG PO (12:00)
[2016-12-21] MEDS ORDERED: THERAGRAN1 TABLET PO (12:01)
== END 2016-12-21 13:20 | DRG 57 ==
LOC: 3WEST 12:39 → ENPENDDIS 12-21 → 3WEST 12-21 13:20
PROVIDERS: Physical Medicine & Rehabilitation Pain Medicine; Psychiatry & Neurology Neurology
PROC: F07M0ZZ Range of Motion and Joint Mobility Treatment of Musculoskeletal System - Whole Body (ICD-10-PCS; principal; 2016-12-06)
DX: I69.351 Hemiplegia and hemiparesis following cerebral infarction affecting right dominant side (principal); I69.320 Aphasia following cerebral infarction; K51.90 Ulcerative colitis, unspecified, without complications; I65.22 Occlusion and stenosis of left carotid artery; I48.91 Unspecified atrial fibrillation; E77.8 Other disorders of glycoprotein metabolism; K50.90 Crohn's disease, unspecified, without complications; I27.2 Other secondary pulmonary hypertension; I12.9 Hypertensive chronic kidney disease with stage 1 through stage 4 chronic kidney disease, or unspecified chronic kidney disease; E78.5 Hyperlipidemia, unspecified; R41.0 Disorientation, unspecified; K21.9 Gastro-esophageal reflux disease without esophagitis; E87.6 Hypokalemia; N40.0 Benign prostatic hyperplasia without lower urinary tract symptoms; N18.9 Chronic kidney disease, unspecified; M46.90 Unspecified inflammatory spondylopathy, site unspecified; M51.36 Other intervertebral disc degeneration, lumbar region; M47.816 Spondylosis without myelopathy or radiculopathy, lumbar region; M48.06 Spinal stenosis, lumbar region; M21.371 Foot drop, right foot; Z79.01 Long term (current) use of anticoagulants; R05 Cough; H53.40 Unspecified visual field defects; Z66 Do not resuscitate; Z82.49 Family history of ischemic heart disease and other diseases of the circulatory system; Z83.3 Family history of diabetes mellitus; Z87.891 Personal history of nicotine dependence
CPT/HCPCS: 70450; 71020; 80053; 85025; 85027; 92507 GN; 92523 GN; 97110 GO; 97530 GP; 97532 GN